=== PATIENT | female | born 1990 | race Asian ===

== ENCOUNTER 2017-10-16 08:16 | Day surgery (SDC) | payer OTHER ==
[2017-10-12 13:24] VITALS: BMI 24.0
--- NOTE | 2017-10-16 08:09 | HP ---
[facility] - Chief Complaint Chief Complaint: left knee pain/instability - Past Medical History Allergies/Adverse Reactions: Allergies Allergy/AdvReac Type Severity Reaction Status Date / Time No Known Drug Allergies Allergy Verified 10/12/17 13:24 ...LMP: 09/15/17 - Current Medications Current Medications: Home Medications Medication Instructions Recorded Oxycodone HCl/Acetaminophen 1 - 2 tab PO Q6H #50 tab MDD 8 10/16/17 [Percocet 5-325 mg Tablet] [facility] Physical Exam - Physical Examination General Appearance: Well Nourished, Well Developed, Alert & Oriented x3 ENT: Clear Lung: Normal air movement Heart: Regular rate & rhythm Extremities: Other (left knee- + swelling, + ttp, decr rom, + ant draw, + hortencia, + pivot, nvi MRI + acl rupture) Neurological: Intact, Alert, Oriented [facility] Impression/Plan - Impression/Plan Impression: left knee acl rupture Operative Procedure: left knee arthroscopy with ACL reconstruction using graftlink allograft Date to be Performed: 10/16/17
[2017-10-16] MEDS ORDERED: DEXAMETHASONE SOD PHOSPHATE/PF 10 MG/ML SDV ONE (08:44)
[2017-10-16] MEDS ORDERED: BUPIVACAINE HCL/PF 0.5% (5MG/ML) 10 ML VIAL ONE (08:44)
[2017-10-16] MEDS ORDERED: MIDAZOLAM HCL 2 MG/2 ML SINGLE DOSE VIAL ONE ×2 (08:48)
[2017-10-16] MEDS ORDERED: PROPOFOL 20 ML ONE (09:33)
[2017-10-16] MEDS ORDERED: DEXAMETHASONE SOD PHOSPHATE 4 MG/1 ML VIAL ONE (09:50)
[2017-10-16] MEDS ORDERED: ceFAZolin SODIUM 1 GM VIAL ONE (09:50)
[2017-10-16] MEDS ORDERED: ceFAZolin SODIUM 1 GM VIAL IVPB ONE (10:00)
[2017-10-16] MEDS ORDERED: oxyCODONE HCL 5 MG TABLET PO PRN (11:02)
[2017-10-16] MEDS ORDERED: ONDANSETRON 4 MG/2 ML VIAL IVPUSH PRN (11:02)
[2017-10-16] MEDS ORDERED: LACTATED RINGERS SOLUTION 1,000 ML IV SCH (11:15)
--- NOTE | 2017-10-16 11:15 | OP ---
Operative Note - Note: [facility]ative [facility]: [facility] Pre-Operative Diagnosis: left knee acl rupture Operation: left knee arthroscopy with ACL reconstruction using graftlink allograft Implants: graftlink Post-Operative Diagnosis: Same as Pre-op Surgeon: Danny Jasmine Complex Care Nurse: Sherif Tompkins Anesthesiologist/DRAPERY AND UPHOLSTERY ESTIMATOR: Billy Aviles Anesthesia: General, Local Specimens Removed: shavings Estimated Blood Loss (mls): 10 Operative Report Dictated: Yes
[2017-10-16] MEDS ORDERED: KETOROLAC TROMETHAMINE 30 MG/1 ML VIAL IVPUSH PRN (11:40)
--- NOTE | 2017-10-16 12:19 | OP ---
DATE OF OPERATION: 10/16/2017 PREOPERATIVE DIAGNOSIS: Left anterior cruciate ligament tear. POSTOPERATIVE DIAGNOSIS: Left anterior cruciate ligament tear. PROCEDURE: Left anterior cruciate ligament reconstruction with GraftLink. SURGICAL ATTENDING: Danny Jasmine MD SCRIPT ARTIST: DAVID Corral ANESTHESIA: Regional and general. CLOSURE: Arthrex GraftLink with appropriate buttons and 3-0 nylon for skin. ESTIMATED BLOOD LOSS: Negligible. COMPLICATIONS: None. CONDITION: To recovery room in stable condition. DESCRIPTION OF PROCEDURE: The patient was taken to the operating room on October 16, 2017. Regional and general anesthesia were administered by the anesthesiologist. IV Kefzol was administered prophylactically prior to the case. The left lower extremity was prepped and draped in the usual sterile fashion. The graft was prepared on the back table. The appropriate markings and suture placements performed for the procedure. The superomedial and medial and lateral infrapatellar portals were made a 15 blade blunt trocar. Alpha trocar was in the superomedial position, scope was in the inferolateral, and working portals were in the inframedial. The scope was placed up into the suprapatellar pouch, which was visualized to be clean. The medial and lateral gutters were visualized to be clean. The undersuface of the patella and trochlea were visualized to be intact with valgus stress on the knee. Medial compartment was entered. Medial meniscus was visualized and probed and found to be intact. Medial femoral condyles were found to be intact as was the medial tibial plateau. In a [id number] position, lateral compartment was entered. The lateral meniscus was found to be have a complete discoid meniscus encompassing the entire lateral compartment. Probing it throughout revealed no full-thickness tears and no displacement and was, thus, left in situ and was not debrided at all. At 90 degrees, the ACL was visualized to be completely torn. Its stump was debrided using a shaver. An ArthroCare device and a shaver was used to do a notchplasty performed to gain sufficient width and height of the notch until the appropriate position of the posterior aspect of the notch was clearly visualized. Switching the scope to the inferomedial portal and then using the inferolateral portal to pass and [id number] guide, a drill pin was drilled from the anterolateral femur into the knee as far posterior as possible leaving the posterior wall as well as in the more lower position in the posterior aspect of the notch. A flip cutter was then deployed, and retrograde reaming of a 10-mm tunnel was obtained. All bone fragments were debrided using the suction device. Good posterior wall was clearly seen. Through this tunnel was passed a FiberStick then a shuttle suture. The scope was then switched to the inferolateral portal. A tibial guide was then used to drill the tibial flip cutter from the anteromedial and proximal tibia just anterior to the PCL. The 10-mm flip cutter was then deployed, and retrograde drilling of the tunnel at 10 mm was performed. Bone fragments were debrided using the shaver. A FiberStick was then placed up the tunnel and was retrieved from the anteromedial portal as a traction suture as well. Both shuttle sutures were found to have no suture bridge and were passed through the inferomedial portal. Graft traction sutures were placed through the shuttle sutures and pulled up into the femur and down into the tibia. This was done after the femoral button was deployed and caught the inferolateral femoral cortex. It was then toggled up into place pulling the graft into the femoral tunnel. The sutures were then pulled down the tibial tunnel. A small accessory incision was made distally allowing the placement of a button distally. The sutures were then toggled tensioning the graft and fixating the button to the anteromedial pouch in the tibia. The knee again was taken through a range of motion and found to go full extension and full flexion. Both toggle sutures were then toggled just to gain as most tension as possible and then tied over and cut short. Range of motion after fixation was full extension and full flexion with negative Mary, negative anterior and posterior drawer. All of the sutures were cut short. The portals were then closed with 3-0 nylon. Sterile pressure dressing followed by a knee immobilizer was placed. The patient was awaken from anesthesia and transferred to the recovery room in stable condition. No complications. Estimated blood loss negligible. Paulina DE [id number]
[2017-10-16 13:24] VITALS: TEMP 98.2
[2017-10-16 15:28] VITALS: BP 130/80; PULSE 92
--- NOTE | 2017-10-19 11:33 | PATH ---
Surgical Pathology Report Patient Name: DARIO JOHNSON [facility]. Rec. #: [id number] /Age/Gender: 1990 (Age: 27) / F Account: [id number] Location: [facility] SURGICAL Taken: 10/16/2017 Received: 10/16/2017 Reported: 10/19/2017 Physicians: Danny Jasmine M.D. Specimen(s) Received LEFT KNEE SHAVINGS Clinical History Left knee ACL tear Final Diagnosis KNEE, LEFT, ARTHROSCOPIC SHAVING: FIBROCARTILAGE WITH MYXOID DEGENERATIVE CHANGES, ALONG WITH PORTIONS OF BONE, SYNOVIUM AND HYALINE CARTILAGE. Electronically Signed James Reveles M.D. Gross Description Received in formalin, labeled "left knee shavings," is a 4.5 x 4.3 x 0.5 cm. aggregate of herring-yellow soft tissue fragments. A sales representative uniforms portion is submitted in one cassette. /10/16/201710/16/2017
== END 2017-10-16 15:30 | disposition home or self-care (01) ==
LOC: JASU-SURG 08:16
PROVIDERS: ATTEND Orthopaedic Surgery
PROC: 0MRP4JZ Replacement of Left Knee Bursa and Ligament with Synthetic Substitute, Percutaneous Endoscopic Approach (ICD-10-PCS; principal; 2017-10-16 09:30)
DX: S83.512A Sprain of anterior cruciate ligament of left knee, initial encounter (principal); X58.XXXA Exposure to other specified factors, initial encounter; Y93.9 Activity, unspecified; Y92.9 Unspecified place or not applicable; Y99.9 Unspecified external cause status
CPT/HCPCS: 84703; 88304-TC; 97116-GP